=== PATIENT | male | born 1975 | race Asian ===

== ENCOUNTER 2022-12-24 02:01 | Outpatient (CLI) | payer BC, SELFPAY ==
--- NOTE | 2022-12-24 07:30 | DI.MRI_ITS ---
Exam(s) MR LOWER JOINT RT WO EXAM: MR LOWER JOINT RT WO CLINICAL HISTORY: persistent right knee pain,h/o acl tear,[id number]. TECHNIQUE: Multiplanar multisequence MRI was performed. COMPARISON: MR RIGHT KNEE from 02/26/2013. Exam interpreted without benefit of recent plain films FINDINGS: BONES: There is no fracture or contusion pattern. JOINTS: A minimal joint effusion is present. Articular cartilage: Patellofemoral joint: Articular cartilage is unremarkable. Medial femoral tibial joint: Articular cartilage is unremarkable. Lateral femoral tibial joint: Articular cartilage is unremarkable. TENDONS: Extensor mechanism: Unremarkable. Medial retinaculum: Unremarkable. Lateral retinaculum: Unremarkable. Popliteus: Unremarkable. MUSCLES: Unremarkable. MENISCI: The medial meniscus is unremarkable. The lateral meniscus is unremarkable. SOFT TISSUES: Unremarkable. LIGAMENTS: Anterior Cruciate: Thickening of the anterior cruciate ligament with intermediate signal. Small amou nt of fluid within fibers of distal ACL.. Findings consistent with mucoid degeneration. The finding s appear less prominent when compared with the previous exam. Posterior Cruciate: Unremarkable. Medial Collateral:Unremarkable. Lateral Collateral: Unremarkable. IMPRESSION: Thickening of the anterior cruciate ligament consistent with mucoid degeneration. The findings appea r less prominent when compared with the previous exam. No ligament or meniscal tear. Minimal joint effusion. No cartilage defects. DATA REPOSITORY:
== END 2022-12-24 02:21 ==
LOC: DI 02:02
PROVIDERS: PCP Registered Nurse; Visit Provider Internal Medicine
DX: M25.561 Pain in right knee (principal); M25.461 Effusion, right knee; M25.861 Other specified joint disorders, right knee
CPT/HCPCS: 73721

== ENCOUNTER 2023-06-21 10:06 | Day surgery (SDC) | payer BC, SELFPAY ==
[2023-06-21] VITALS (9 sets, daily range): BP systolic 96–131; BP diastolic 66–96; PULSE 68–78; RESP 18–22; TEMP 36.4–36.7; O2SAT 89–100; BMI 29.2
--- NOTE | 2023-06-21 11:19 | W.ANESPRE ---
General Info Date of Service Date Performed: 06/21/23 Height: 5 ft 7 in Weight: 84.822 kg Body Mass Index (BMI): 29.2 Surgical Procedure: Operation Date: 06/21/23 12:10 Proposed Procedure Side Surgeon p Distal IT Band Lengthening Right Paul Sandhu MD s Knee Arthroscopy Right Paul Sandhu MD Meds Allergies and Home Medications Allergies Allergy/AdvReac Type Severity Reaction Status Date / Time animal dander Allergy Unknown Other (See Unverified 06/21/23 10:45 Comment) house dust Allergy Unknown Other (See Unverified 06/21/23 10:45 Comment) tree and shrub pollen Allergy Unknown Other (See Unverified 06/21/23 10:45 Comment) Home Medication Medication Instructions Recorded amlodipine 5 mg tablet 5 mg PO DAILY 11/02/22 lisinopril 20 mg tablet 20 mg PO DAILY 11/02/22 lisinopril 20 1 tab PO DAILY 11/02/22 mg-hydrochlorothiazide 25 mg tablet meloxicam 15 mg tablet 15 mg PO DAILY PRN 11/02/22 Current Visit Medications: Current Medications Generic Name Dose Route Start Last Admin Trade Name Freq PRN Reason Stop Dose Admin Acetaminophen 1,000 mg 06/21/23 06:00 Acetaminophen 500 Mg Tab PO 07/21/23 05:59 PREOP UMA Celecoxib 400 mg 06/21/23 06:00 Celecoxib 200 Mg Cap PO 07/21/23 05:59 PREOP UMA Gabapentin 300 mg 06/21/23 06:00 Gabapentin 300 Mg Cap PO 07/21/23 05:59 PREOP UMA Tranexamic Acid 1,000 mg/ 60 mls @ 360 mls/hr 06/21/23 06:00 Sodium Chloride IVPB 06/21/23 18:00 PREOP [facility] Ringer's Solution 1,000 mls @ 80 mls/hr 06/21/23 06:00 IV 06/21/23 23:59 INFUSION UMA Cefazolin Sodium/Dextrose 2 gm in 50 mls @ 100 mls/hr 06/21/23 06:00 Ancef Duplex IVPB 06/21/23 23:59 PREOP UMA IV Miscellaneous Supplies 1 each 06/21/23 06:00 Iv Access IV 06/21/23 23:59 DIRECTED UMA Sodium Chloride 0 ml 09/22/23 06:00 Normal Saline Flush 10 Ml Syr IV 06/21/23 23:59 PRN PRN Sodium Chloride 0 ml 06/21/23 06:00 Normal Saline 10 Ml Vial IJ 06/21/23 23:59 DIRECTED PRN Sterile Water 0 ml 06/21/23 06:00 Water,Injection,Sterile 10 Ml Vial IJ 06/21/23 23:59 DIRECTED PRN PFSH Active Problems Active Problems: Problem Status Onset Code Iliotibial band syndrome, right leg M76.31 Right knee pain M25.561 Medical History Medical History Bilateral knee pain Hypertensive disorder Tobacco Smoking/Tobacco Use Status: Current every day Tobacco Type: cigarettes Alcohol Alcohol Intake: current Alcohol intake frequency: a few times a month Details: 1-2 times per week Substance Use Substance use: Never Substance use type: does not use Vital Signs and Lab Results Lab Results Blood Type / Crossmatch: No Data to Display Complete Blood Count: No Data to Display Complete Metabolic Panel: No Data to Display Liver Function Panel: No Data to Display Coagulation Panel: No Data to Display Cardiac Panel: No Data to Display Arterial Blood Gas: No Data to Display Venous Blood Gas: No Data to Display Pancreas Panel: No Data to Display Thyroid Panel: No Data to Display Infectious Disease: No Data to Display Blood Cultures: No Data to Display Toxicology Panel: No Data to Display Anesthesia Assessment and Plan Anesthesia History Personal History: No History of Anesthesia Complications Family History: No Family History of Anesthesia Complications Exercise Tolerance Exercise Tolerance: Metabolic Equivalents>4 Pertinent Negatives Pertinent Negatives: No Symptoms of GERD, No Major Cardiovascular Symptoms or Complaints and No Major Pulmonary Symptoms or Complaints Cardiac & Pulmonary Exam Cardiac Exam: Normal S1/S2 Heart Sounds Pulmonary Exam: Clear Bilateral Breath Sounds Implantable Cardiac Device Does patient have a Pacemaker or an ICD?: No Airway Exam Known Difficult Airway: No Mallampati Class: 2 Mouth Opening: Normal (> 3cm) Thyromental Distance: Greater than 3 cm Neck Range of Motion: Full ROM Neck Circumference: Normal Teeth Condition: Normal Dentition ASA Classification ASA Score: ASA 2 Emergency Case?: No NPO Status NPO Status: NPO Clears >2 hours, Solids >8 hours Anesthesia Plan Resuscitation Status: Full Code Anesthesia Technique: General Anesthesia Airway Planned: Endotracheal Tube Monitors Used: Standard Monitors
[2023-06-21] MEDS: Gabapentin 300 MG CAP PO (11:31)
[2023-06-21] MEDS: Celecoxib 200 MG CAP 400 MG PO (11:31)
[2023-06-21] MEDS: Acetaminophen 500 MG TAB 1000 MG PO (11:31)
[2023-06-21] MEDS: Lactated Ringers 1,000 ML 80 ML IV (11:48)
[2023-06-21] MEDS: ceFAZolin 2 GM/50 ML BAG IVPB (12:38)
--- NOTE | 2023-06-21 12:45 | PDOC.DSDIS_ITS ---
Date of service: 06/21/23 Time of Service: 12:45 Discharge Plan Disposition Patient Disposition: Home Condition: Improving Discharge Details Reason For Visit: Right Distal IT Band Syndrome Attending Provider: Paul Sandhu Primary Care Provider: Eyal Gee Home Meds and New Rx's Prescriptions: New acetaminophen 500 mg tablet 500 mg PO Q6H PRN PRN (Reason: pain) Qty: 60 3RF hydrocodone-acetaminophen 5-325 mg tablet 1 tab PO Q4H PRN (Reason: pain) Qty: 14 0RF aspirin 81 mg tablet,delayed release (DR/EC) 81 mg PO BID Qty: 30 0RF Continued amlodipine 5 mg tablet 5 mg PO DAILY lisinopril-hydrochlorothiazide 20-25 mg tablet 1 tab PO DAILY lisinopril 20 mg tablet 20 mg PO DAILY meloxicam 15 mg tablet 15 mg PO DAILY PRNQty: 30 0RF Discharge Instructions Additional Instructions: IT Band and Knee Scope Discharge Instructions Activity: You may weight bear as tolerated. You should use the crutches to support the knee for the first 2 weeks. You may move the knee as tolerated, however, do not try to move too much too soon. For the first few days, you should keep the leg elevated when not mobilizing or sitting. You may apply ice with the Cryo/Cuff to the knee continuously for the first few days making sure to always have something between the skin and the Cryo/Cuff. After the first 2 to 3 days, you may use that as needed. Dressings: You may remove the Bg wrap after 3 days. The gauze may be removed and the 2 wounds over the front of the knee may be dressed with Band-Aids. The dressing over the outside of the thigh and knee may remain in place until follow-up at 2 weeks. The wound under this dressing is closed with buried sutures and skin glue which will not need to be removed. Medications: - You should take Tylenol and Meloxicam around the clock for baseline pain. - You have been prescribed a stronger narcotic, Hydrocodone, for breakthrough pain. Follow-up: 2 weeks Referrals: Paul Sandhu MD [ [facility] STAFF PHYSICIAN] - Equipment/Supplies: Partial Weight Bearing Crutches Activity:: Activity as Tolerated Remove Dressings/Wound Care:: 72 hours Diet:: As Tolerated Discharge Orders Discharge Orders: Discharge Order (Routine); Ordered 06/21/23 Ordered By: Paul Sandhu
[2023-06-21] MEDS: EPINEPHrine 30 MG/30 ML VIAL (13:03)
[2023-06-21] MEDS: Bupivacaine 0.5% Pres-Free 30 ML VIAL (13:04)
--- NOTE | 2023-06-21 13:35 | W.PM.OP ---
Date of service: 06/21/23 Time of Service: 13:35 Operative Note Operative Note DATE OF PROCEDURE: 06/21/23 PRE-OP DIAGNOSIS: Right Distal Iliotibial Band Syndrome POST-OP DIAGNOSIS: same PROCEDURE: Right Knee Diagnostic Arthroscopy Open Distal Iliotibial Band Z-Lengthening, Right Knee SURGEON: Paul Sandhu IOS SOFTWARE ENGINEER: Natanael Randolph ANESTHESIA TYPE: General LMA/ETT Refer to Anesthesia Record ESTIMATED BLOOD LOSS: 20 PATHOLOGY: none sent COMPLICATIONS: None Patient was transported to: PACU Patient's condition: stable Indications: I have seen Josse in clinic for symptoms of a meniscus tear. This was confirmed based on MRI and exam findings. Nonoperative measures were exhausted but disability and pain persisted. I discussed knee arthroscopy with meniscal intervention with the patient. I reviewed the risks of the procedure to include, but not limited to, bleeding, infection, pain, stiffness, damage to nerves or vessels, recurrence, blood clot. Despite these risks, the patient elected to proceed. 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 Procedure Description: Josse was greeted in the preoperative holding area where the correct side was identified and marked. The consent was reviewed with the patient and signed. The history and physical was updated. All questions were answered. He was taken back to the operating room. The patient was placed into the supine position on the operating room table. A nonsterile tourniquet was placed high onto the leg but not used. All bony prominences were well padded. Prophylactic antibiotics in the form of Cefazolin were administered. The right leg was then prepped with Chloraprep and draped in a standard fashion with stockinette and extremity drape. A timeout to confirm correct identity, side and site, procedure, allergies, anesthesia, and medical concerns was performed. The leg was placed into a pneumatic leg covington, [id number]. A standard lateral portal was made at the lateral border of the patella tendon in line with the inferior pole of the patella, soft spot. The skin and deep tissue was incised sharply and the blunt trochar was inserted atraumatically. A diagnostic arthroscopy was performed and the findings are listed above. The suprapatellar pouch had no significant inflammatory change. The patellofemoral articulation showed no articular damage as well as good tracking. The lateral gutter had no loose bodies and the medial gutter had no loose bodies. The knee was brought into some valgus stress in extension to open the medial compartment. A medial portal was made, localized by a spinal needle. The portal was created with an #11 blade through skin and capsule under direct visualization avoiding any meniscal injury. A probe was then inserted into the medial compartment. The medial compartment was fully inspected. The chondral surface of the tibia showed grade II chondromalacia with some focal areas of possible grade III chondromalacia and the surface of the femur showed grade II chondromalacia. The medial meniscus had no meniscal tear. The notch was then inspected which showed an intact ACL and an intact PCL. The leg was then brought into a figure of 4 position. The lateral compartment was fully inspected with the arthroscope and a probe. The chondral surface of the lateral femur showed no significant chondromalacia. The chondral surface of the lateral tibia showed fissuring which extended down to bone, more medial than lateral. The lateral meniscus had no meniscal tear. The arthroscope was brought back into the suprapatellar pouch and the leg was in full extension. The knee was thoroughly irrigated with the arthroscopic fluid on high flow and pressure. Inflow was stopped and excess fluid was removed. The wounds were closed with 4-0 Nylon. Attention was then turned to the IT band lengthening portion of the case. A longitudinal incision was made overlying the central portion of the IT band starting at the lateral femoral epicondyle and moving proximally. This was taken down sharply through the skin. Deeper tissues were bluntly dissected and bleeding was cauterized with electrocautery. The iliotibial band was identified along with the anterior posterior borders. With this fully identified I then planned the Z-lengthening cut. A longitudinal limb was planned to be 4 cm in length with the proximal limb of the Z moving posteriorly and the distal limb moving anteriorly. A knife was used to cut full-thickness to the iliotibial band protecting deeper structures underneath. There is immediate retraction of the edges as the IT band was under significant tension. This was completed anteriorly and posteriorly removing any adhesions between the parts of the iliotibial band to allow separation. There is approximately 2 cm of opening and therefore the remaining 2 cm was reapproximated along the longitudinal cut. This was done with a #2 FiberWire. The wound was then thoroughly irrigated. The deep tissues were injected with 0.25% bupivacaine. The knee and the portal sites were also injected with 0.25% bupivacaine. The IT band incision was closed with 2-0 Vicryl followed by 3-0 Monocryl in a subcuticular, running fashion. This was reinforced with skin glue. A Mepilex dressing was applied to the lateral wound and Xeroform along with 4 x 4 gauze was applied to the portal sites. Kerlix and Bg wrap was also wrapped around the knee and the incision sites. The patient tolerated the procedure well and was transferred to the PACU in a stable condition suffering no known complication.
--- NOTE | 2023-06-21 14:43 | W.ANESPOSTOP ---
Postoperative Evaluation Date, Time and Location Date Performed: 06/21/23 Time Performed: 14:43 Patient Location: PACU Vital Signs Most Recent Imported Vital Signs: Most Recent Vital Signs Temp Pulse Resp BP Pulse Ox 36.5 C 68 20 131/96 H 98 06/21/23 14:35 06/21/23 14:35 06/21/23 14:35 06/21/23 14:35 06/21/23 14:35 Pain Score Most Recent Pain Score: Most Recent Pain Score Pain Level 2 06/21/23 14:35 Assessment Mental Status: Awake (Alert & Oriented to Patient Baseline) Airway and Respiratory Function: Patent airway with normal (patient baseline) respiratory exam Cardiovascular Function: Hemodynamically Stable Hydration Status: Adequately Hydrated Nausea & Vomiting: No Nausea or Vomiting Pain: Pain is tolerable per patient Peripheral Nerve Block: Patient did not receive a nerve block
== END 2023-06-21 16:15 | disposition home or self-care (01) ==
PROVIDERS: PCP Registered Nurse; Visit Provider Student in an Organized Health Care Education/Training Program
PROC: (CPT 27305; principal; 2023-06-21 12:00)
PROC: (CPT 29870; 2023-06-21 12:00)
DX: M76.31 Iliotibial band syndrome, right leg (principal); M94.261 Chondromalacia, right knee
CPT/HCPCS: 27305; 29870; J0690; J1100; J2250; J2405; J2704